=== PATIENT | male | born 1990 ===

== ENCOUNTER 2024-09-21 06:26 | Emergency (ER) | payer OTHER ==
[~2024-09-21] VITALS: Ht 182.9 cm; Wt 65.8 kg
[~2024-09-21 06:26] MED LIST: ALBU90OI; ALBU90OI INH; AMOX500 PO; DIPATR PO; HYDACE5 PO; Lamisil At24 GM TOP; TRAM50 PO; Veetids 500500 MG PO
[2024-09-21 07:13] VITALS: BP 113/88
== END 2024-09-21 08:57 | disposition home or self-care (01) ==
LOC: ER 06:26
DX: S60.221A Contusion of right hand, initial encounter (principal); J45.909 Unspecified asthma, uncomplicated; X58.XXXA Exposure to other specified factors, initial encounter; Y99.0 Civilian activity done for income or pay; Z87.891 Personal history of nicotine dependence
CPT/HCPCS: 73130; 99283-25